=== PATIENT | female | born 1980 | race Two or more races ===

== ENCOUNTER → 2024-02-14 08:00 | Outpatient (CLI) | payer OTHER ==
[~2024-02-14] VITALS: Ht 177.8 cm; Wt 88.5 kg
[~2024-02-14 08:00] MED LIST: FUSION PLUS CA1 EACH PO
== END | disposition home or self-care (01) ==
LOC: EKG 08:00 → SURH 02-22 10:00 → EDSTATUS 02-22 10:00 → SURH 02-22 13:30
PROVIDERS: ATTEND Obstetrics & Gynecology Gynecologic Oncology
DX: C54.1 Malignant neoplasm of endometrium (principal); Z01.818 Encounter for other preprocedural examination; D64.9 Anemia, unspecified; N39.0 Urinary tract infection, site not specified; R79.1 Abnormal coagulation profile; Z20.822 Contact with and (suspected) exposure to COVID-19; I10 Essential (primary) hypertension

== ENCOUNTER 2024-02-20 11:40 | Inpatient (IN) | payer OTHER ==
[~2024-02-20] VITALS: Ht 177.8 cm; Wt 88.5 kg
[2024-02-20] MEDS ORDERED: 0.9 % SODIUM CHLORIDE 500 ML IV ONE (15:15)
[2024-02-20 16:57] LABS: HEMATOCRIT 36.2 % (36.0-45.00); HEMOGLOBIN 12.1 g/dL (12.0-15.00); MEAN CELL VOLUME 78.6 fL (80.00-100.00); MEAN CORPUSCULAR HEMOGLOBIN 26.2 pg (27.00-32.0); MEAN CORPUSCULAR HGB CONC 33.3 g/dl (32.0-36.0); PLATELET COUNT 221 K/uL (150-450); RED BLOOD COUNT 4.61 M/uL (4.00-6.00); RED CELL DISTRIBUTION WIDTH 22.9 % (11.5-14.5)
[2024-02-20 17:08] LABS: URINE APPEARANCE Cloudy; URINE BILIRRUBIN Negative (NEGATIVE); URINE BLOOD Negative; URINE COLOR Yellow; URINE GLUCOSE Negative (NEGATIVE); URINE KETONE Trace (NEGATIVE); URINE LEUKOCYTE Negative; URINE NITRATE Negative; URINE PROTEIN Negative (NEGATIVE); URINE UROBILINOGEN 0.2 E.U./dl
[2024-02-20 17:12] LABS: URINE BACTERIA 4940.1 uL (0.0-1933); URINE EPITHELIAL CELLS 68.9 uL (0.0-38.8); URINE RBC 52.3 uL (0.0-20.8); URINE WBC 23.3 uL (0.0-23.2)
[2024-02-20 17:13] LABS: PROTHROMBIN TIME 10.9 SECONDS (9.0-11.5)
[2024-02-20 17:30] LABS: URINE CAST 0.91 uL (0.0-1.40)
[2024-02-20 17:42] LABS: ALBUMIN 3.9 gm/dL (3.4-5.0); BILIRUBIN TOTAL 0.28 mg/dL (0.3-1.2); CALCIUM 9.2 mg/dL (8.5-10.1); CREATININE SERUM 0.81 mg/dL (0.55-1.02); GFR 77.17; GLOBULINA 3.8 G/DL (2.4-3.5); POTASSIUM 3.91 mEq/L (3.5-5.1); TOTAL PROTEIN 7.7 gm/dL (6.4-8.2)
[2024-02-20] MEDS ORDERED: 0.9 % SODIUM CHLORIDE 1,000 ML IV SCH (17:45)
[2024-02-20] MEDS ORDERED: ACETAMINOPHEN 500 MG GEL..CAP PO PRN (17:45)
[2024-02-20 22:03] VITALS: BP 112/69; O2SAT 100
[2024-02-20 22:06] VITALS: BP 112/69
[2024-02-20 22:42] VITALS: BP 125/75; O2SAT 97
[2024-02-21 00:54] VITALS: BP 102/57; O2SAT 100
[2024-02-21 08:21] VITALS: BP 109/67; O2SAT 98
[2024-02-21] MEDS ORDERED: FAMOTIDINE/PF 20 MG in 0.9 % SODIUM CHLORIDE 8 ML IV PUSH SCH (09:00)
[2024-02-21 12:59] LABS: HEMATOCRIT 34.7 % (36.0-45.00); HEMOGLOBIN 11.8 g/dL (12.0-15.00); MEAN CELL VOLUME 77.2 fL (80.00-100.00); MEAN CORPUSCULAR HEMOGLOBIN 26.1 pg (27.00-32.0); MEAN CORPUSCULAR HGB CONC 33.9 g/dl (32.0-36.0); PLATELET COUNT 183 K/uL (150-450); RED CELL DISTRIBUTION WIDTH 22.3 % (11.5-14.5)
[2024-02-21 13:12] LABS: ALBUMIN 3.6 gm/dL (3.4-5.0); BILIRUBIN TOTAL 0.38 mg/dL (0.3-1.2); CALCIUM 8.3 mg/dL (8.5-10.1); CREATININE SERUM 0.63 mg/dL (0.55-1.02); GFR 103.14; GLOBULINA 3.2 G/DL (2.4-3.5); POTASSIUM 3.99 mEq/L (3.5-5.1); TOTAL PROTEIN 6.8 gm/dL (6.4-8.2)
[2024-02-21 15:39] VITALS: BP 125/58; O2SAT 100
[2024-02-21] MEDS ORDERED: CITRIC ACID/SODIUM CITRATE 30 ML BLIST.PACK PO ONE (16:45)
[2024-02-22 00:05] VITALS: BP 102/66; O2SAT 100
[2024-02-22 07:05] LABS: ALBUMIN 3.6 gm/dL (3.4-5.0); BILIRUBIN TOTAL 0.54 mg/dL (0.3-1.2); CALCIUM 8.5 mg/dL (8.5-10.1); CREATININE SERUM 0.66 mg/dL (0.55-1.02); GFR 97.74; GLOBULINA 3.1 G/DL (2.4-3.5); POTASSIUM 4.26 mEq/L (3.5-5.1); TOTAL PROTEIN 6.7 gm/dL (6.4-8.2)
[2024-02-22 07:26] LABS: HEMATOCRIT 33.6 % (36.0-45.00); HEMOGLOBIN 11.5 g/dL (12.0-15.00); MEAN CELL VOLUME 78.7 fL (80.00-100.00); MEAN CORPUSCULAR HGB CONC 34.3 g/dl (32.0-36.0); PLATELET COUNT 211 K/uL (150-450); RED BLOOD COUNT 4.28 M/uL (4.00-6.00); RED CELL DISTRIBUTION WIDTH 22.2 % (11.5-14.5)
[2024-02-22] MEDS ORDERED: MAGNESIUM CITRATE 296 ML BOTTLE PO NR (08:00)
[2024-02-22 08:23] VITALS: BP 115/63; O2SAT 100
[2024-02-22] MEDS ORDERED: RINGERS SOLUTION,LACTATED 1,000 ML IV SCH (10:15)
[2024-02-22] MEDS ORDERED: VISTASEAL DUAL APPICATOR 1 EACH APPL TOP ONE (11:45)
[2024-02-22] MEDS ORDERED: POVIDONE-IODINE 118 ML BOTT TOP ONE (11:45)
[2024-02-22] MEDS ORDERED: BUPIVACAINE HCL 30 ML VIAL IJ ONE (11:45)
[2024-02-22] MEDS ORDERED: MORPHINE SULFATE 4 MG/ML VIAL IV ONE (11:45)
[2024-02-22] MEDS ORDERED: CEFOXITIN SODIUM 2,000 MG VIAL IV ONE (11:45)
[2024-02-22] MEDS ORDERED: THROMBIN,HU/FIBRINOGEN/CALCIUM 10 ML SYRINGE TOP ONE (11:45)
[2024-02-22] MEDS ORDERED: ACETAMINOPHEN 500 MG GEL..CAP PO SCH (12:00)
[2024-02-22] MEDS ORDERED: MORPHINE SULFATE 4 MG/ML CARTRIDGE IV SCH (12:00)
[2024-02-22 12:52] LABS: HEMATOCRIT 35.4 % (36.0-45.00); HEMOGLOBIN 11.8 g/dL (12.0-15.00); MEAN CELL VOLUME 77.9 fL (80.00-100.00); MEAN CORPUSCULAR HGB CONC 33.4 g/dl (32.0-36.0); PLATELET COUNT 224 K/uL (150-450); RED BLOOD COUNT 4.54 M/uL (4.00-6.00); RED CELL DISTRIBUTION WIDTH 21.7 % (11.5-14.5)
[2024-02-22 12:58] LABS: CALCIUM 8.3 mg/dL (8.5-10.1); CREATININE SERUM 0.7 mg/dL (0.55-1.02); GFR 91.33; POTASSIUM 4.59 mEq/L (3.5-5.1)
[2024-02-22] MEDS ORDERED: SIMETHICONE 125 MG CAPSULE PO SCH (13:00)
[2024-02-22 14:31] VITALS: BP 108/71; O2SAT 97
[2024-02-22 16:00] VITALS: BP 108/54; O2SAT 99
[2024-02-22] MEDS ORDERED: CEFOXITIN SODIUM 2,000 MG VIAL IV SCH (17:00)
[2024-02-22] MEDS ORDERED: METOCLOPRAMIDE HCL 5 MG/ML VIAL IV SCH (17:00)
[2024-02-22] MEDS ORDERED: FAMOTIDINE/PF 20 MG/2 ML VIAL IV SCH (21:00)
[2024-02-22] MEDS ORDERED: GABAPENTIN 300 MG CAPSULE PO SCH (21:00)
[2024-02-22] MEDS ORDERED: DOCUSATE SODIUM 100MG CAP PO SCH (21:00)
[2024-02-23] VITALS: BP 110/60; O2SAT 95
[2024-02-23 01:53] LABS: HEMATOCRIT 31.6 % (36.0-45.00); HEMOGLOBIN 10.6 g/dL (12.0-15.00); MEAN CELL VOLUME 77.6 fL (80.00-100.00); MEAN CORPUSCULAR HGB CONC 33.4 g/dl (32.0-36.0); PLATELET COUNT 195 K/uL (150-450); RED BLOOD COUNT 4.07 M/uL (4.00-6.00); RED CELL DISTRIBUTION WIDTH 22.5 % (11.5-14.5)
[2024-02-23 02:09] LABS: CALCIUM 7.9 mg/dL (8.5-10.1); CREATININE SERUM 2.15 mg/dL (0.55-1.02); GFR 25.02; POTASSIUM 3.8 mEq/L (3.5-5.1)
[2024-02-23 08:00] VITALS: BP 127/66; O2SAT 97
[2024-02-23] MEDS ORDERED: ENOXAPARIN SODIUM 40 MG/0.4 ML SYRINGE SUBCUTANEO SCH (09:00)
[2024-02-23] MEDS ORDERED: GABAPENTIN 300 MG CAPSULE PO SCH (09:00)
[2024-02-23 13:16] LABS: CALCIUM 8.1 mg/dL (8.5-10.1); CREATININE SERUM 0.88 mg/dL (0.55-1.02); GFR 70.13; POTASSIUM 4.28 mEq/L (3.5-5.1)
[2024-02-23 16:09] VITALS: BP 111/56; O2SAT 98
[2024-02-24] VITALS: BP 108/58; O2SAT 96
[2024-02-24 08:00] VITALS: BP 137/67; O2SAT 98
[2024-02-24 08:28] LABS: CALCIUM 8.2 mg/dL (8.5-10.1); CREATININE SERUM 0.55 mg/dL (0.55-1.02); GFR 120.63; POTASSIUM 3.86 mEq/L (3.5-5.1)
[2024-02-24] MEDS ORDERED: FAMOtidine 20 MG TABLET PO SCH (09:00)
[2024-02-24 09:35] LABS: HEMATOCRIT 30.2 % (36.0-45.00); MEAN CELL VOLUME 78.9 fL (80.00-100.00); MEAN CORPUSCULAR HEMOGLOBIN 26.1 pg (27.00-32.0); PLATELET COUNT 178 K/uL (150-450); RED BLOOD COUNT 3.83 M/uL (4.00-6.00); RED CELL DISTRIBUTION WIDTH 22.9 % (11.5-14.5)
== END 2024-02-24 12:08 | disposition home or self-care (01) | DRG 742 ==
LOC: ER 11:41 → SURG 18:19
PROVIDERS: Nurse Practitioner Family; Obstetrics & Gynecology; Obstetrics & Gynecology Gynecologic Oncology; ADMIT Internal Medicine; ATTEND Internal Medicine
PROC: 0UT24ZZ Resection of Bilateral Ovaries, Percutaneous Endoscopic Approach (ICD-10-PCS; principal; 2024-02-20)
PROC: 0UT94ZZ Resection of Uterus, Percutaneous Endoscopic Approach (ICD-10-PCS; 2024-02-20)
PROC: 07BC4ZZ Excision of Pelvis Lymphatic, Percutaneous Endoscopic Approach (ICD-10-PCS; 2024-02-20)
PROC: 0UT74ZZ Resection of Bilateral Fallopian Tubes, Percutaneous Endoscopic Approach (ICD-10-PCS; 2024-02-20)
PROC: 8E0W4CZ Robotic Assisted Procedure of Trunk Region, Percutaneous Endoscopic Approach (ICD-10-PCS; 2024-02-20)
PROC: 30233N1 Transfusion of Nonautologous Red Blood Cells into Peripheral Vein, Percutaneous Approach (ICD-10-PCS; 2024-02-20)
DX: N85.02 Endometrial intraepithelial neoplasia [EIN] (principal); E70.331 Hermansky-Pudlak syndrome; D36.0 Benign neoplasm of lymph nodes; Z20.822 Contact with and (suspected) exposure to COVID-19
CPT/HCPCS: 58548; S2900